=== PATIENT | female | born 1950 | race Caucasian/White ===

== ENCOUNTER 2017-12-28 13:01 | Inpatient (IN) | payer MEDICARE, BC, MEDICAID ==
[2017-12-28 13:28] LABS: ADD MAN DIFF? NO
[2017-12-28 13:31] LABS: BASOPHILS % 0.4 % (0.0-2.0); EOSINOPHILS % 0.1 % (0.0-7.0); HEMATOCRIT 32.2 % (37.0-47.0); HEMOGLOBIN 9.6 g/dl (12.0-16.0); LYMPHOCYTES % 9.3 % (15.0-51.0); MEAN CORPUSCULAR HEMOGLOBIN 27.3 pg (29.0-33.0); MEAN CORPUSCULAR HGB CONC 29.8 g/dl (32.0-37.0); MEAN CORPUSCULAR VOLUME 91.5 fl (82.0-101.0); MEAN PLATELET VOLUME 11.2 fl (7.4-10.4); MONOCYTE # 0.3 10^3/ul (0.3-0.9); MONOCYTES % 3.2 % (0.0-11.0); NEUTROPHIL # 8.9 10^3/ul (1.6-7.5); NEUTROPHILS % 86.4 % (39.0-77.0); PLATELET COUNT 225 10^3/UL (140-415); RED BLOOD COUNT 3.52 10^6/ul (4.20-5.40); RED CELL DISTRIBUTION WIDTH 15.9 % (11.5-14.5)
[2017-12-28 13:31] LABS: WHITE BLOOD COUNT 10.3 10^3/ul (4.8-10.8)
[2017-12-28 13:49] LABS: ALANINE AMINOTRANSFERASE 20 IU/L (13-69); ALBUMIN 3.8 g/dl (3.3-4.9); ALBUMIN/GLOBULIN RATIO 1.05; ALKALINE PHOSPHATASE 82 IU/L (42-121); ASPARTATE AMINO TRANSFERASE 20 IU/L (15-46); BILIRUBIN,INDIRECT 0.4 mg/dl (0-1.1); BILIRUBIN,TOTAL 0.4 mg/dl (0.2-1.3); BLOOD UREA NITROGEN 22 mg/dl (7-20); CALCIUM 9.1 mg/dl (8.4-10.2); CHLORIDE 94 mmol/L (97-110); CREATININE 0.98 mg/dl (0.44-1.00); GLUCOSE 258 mg/dl (70-220); POTASSIUM 4.7 mmol/L (3.5-5.1); SODIUM 143 mmol/L (135-144); TOTAL PROTEIN 7.4 g/dl (6.1-8.1)
[2017-12-28 13:51] LABS: INR 1.19; PROTIME 15.3 Sec (11.9-14.9); PT RATIO 1.2
[2017-12-28 13:52] LABS: PARTIAL THROMBOPLASTIN TIME 29.2 Sec (25.0-35.0)
[2017-12-28 13:56] LABS: AADO2 Arterial 125.9 mmHg (7.0-24.0); Allen Test ACCEPTAB; Arterial Base Excess 15.3 mmol/L (-3.0-3); Arterial Blood Gas Oxygen Sat 93.1 mmHG (95.0-98.0); Arterial COHb 0.3 % (0.0-3.0); Arterial Fraction of Oxyhgb 92.7 % (93.0-99.0); Arterial HCO3 43.5 mmol/L (22.0-26.0); Arterial MetHb 0.1 % (0.0-1.5); Arterial Total Hemglobin 10.8 g/dl (12.0-18.0); Arterial pCO2 76.6 mmhg (35-45); Blood Gas IEPAP 15/5; MODE MASK - BIPAP; Site Right Radial
[2017-12-28 13:58] LABS: ANION GAP 11 (8-16); CARBON DIOXIDE 43 mmol/L (21-31)
[2017-12-28 14:00] LABS: LACTIC ACID 1.4 mmol/L (0.5-2.0)
[2017-12-28 14:00] LABS: B-TYPE NATRIURETIC PEPTIDE 15100 PG/ML (0-125)
[2017-12-28] MEDS: FUROSEMIDE 40 MG INJ IV ×2 (14:05→18:27)
[2017-12-28 14:15] LABS: TROPONIN-I 0.354 ng/ml (0.000-0.120)
[2017-12-28 14:21] LABS: UR AMORPHOUS CRYSTAL FEW /HPF (NONE SEEN); UR BACTERIA FEW /HPF (NONE SEEN); UR CALCIUM OXALATE CRYSTAL FEW /HPF (NONE SEEN); UR MUCUS FEW /HPF (NONE SEEN); UR RBC 2 /HPF (0-5); UR WBC 7 /HPF (0-5)
[2017-12-28 14:28] LABS: ADD UMIC YES; UR ASCORBIC ACID NEGATIVE (NEGATIVE); UR BILIRUBIN (Dip) NEGATIVE (NEGATIVE); UR BLOOD (Dip) 1+ mg/dL (NEGATIVE); UR CLARITY SLIGHTLY CLOUDY (CLEAR); UR COLOR AMBER (YELLOW); UR GLUCOSE (Dip) 1+ mg/dL (NEGATIVE); UR KETONES (Dip) TRACE mg/dL (NEGATIVE); UR LEUKOCYTE ESTERASE (Dip) TRACE Leu/ul (NEGATIVE); UR NITRITE (Dip) NEGATIVE (NEGATIVE); UR SPECIFIC GRAVITY (Dip) 1.023 (1.003-1.030); UR TOTAL PROTEIN (Dip) 3+ mg/dl (NEGATIVE); UR UROBILINOGEN (Dip) NEGATIVE (NEGATIVE)
[2017-12-28] MEDS: ASPIRIN 81 MG TAB PO (14:48)
[2017-12-28 15:19] LABS: LACTIC ACID 1.4 mmol/L (0.5-2.0)
[2017-12-28] MEDS ORDERED: ACETAMINOPHEN 650MG/20.3ML CUP PO (17:30)
[2017-12-28] MEDS ORDERED: BISACODYL 10 MG SUPP PR (17:30)
[2017-12-28] MEDS ORDERED: ALBUTEROL/IPRATROPIUM (NEB) 3 ML AMP INH (17:30)
[2017-12-28 17:38] LABS: ADD MAN DIFF? NO
[2017-12-28 17:40] LABS: WHITE BLOOD COUNT 8.4 10^3/ul (4.8-10.8)
[2017-12-28 17:40] LABS: BASOPHILS % 0.4 % (0.0-2.0); EOSINOPHILS % 0.1 % (0.0-7.0); HEMATOCRIT 32.3 % (37.0-47.0); HEMOGLOBIN 9.7 g/dl (12.0-16.0); LYMPHOCYTES # 1.4 10^3/ul (0.8-2.9); LYMPHOCYTES % 17.1 % (15.0-51.0); MEAN CORPUSCULAR HEMOGLOBIN 27.4 pg (29.0-33.0); MEAN CORPUSCULAR VOLUME 91.2 fl (82.0-101.0); MEAN PLATELET VOLUME 11.2 fl (7.4-10.4); MONOCYTE # 0.3 10^3/ul (0.3-0.9); MONOCYTES % 3.5 % (0.0-11.0); NEUTROPHIL # 6.6 10^3/ul (1.6-7.5); NEUTROPHILS % 78.2 % (39.0-77.0); PLATELET COUNT 220 10^3/UL (140-415); RED BLOOD COUNT 3.54 10^6/ul (4.20-5.40); RED CELL DISTRIBUTION WIDTH 15.9 % (11.5-14.5)
[2017-12-28 17:59] LABS: INR 1.13; PROTIME 14.7 Sec (11.9-14.9); PT RATIO 1.1
[2017-12-28 18:00] LABS: PARTIAL THROMBOPLASTIN TIME 26.6 Sec (25.0-35.0)
[2017-12-28 18:01] LABS: LACTIC ACID 1.5 mmol/L (0.5-2.0)
[2017-12-28 18:07] LABS: HEMOGLOBIN A1C 6.7 % (0-5.9)
[2017-12-28 18:20] LABS: CREATINE KINASE 28 IU/L (23-200)
[2017-12-28] MEDS: HEPARIN 1000 UNITS/ML 10 ML INJ IV (18:25)
[2017-12-28] MEDS: HEPARIN 25000 UNITS/250 ML 250 ML IV (18:26)
[2017-12-28] MEDS: CLOPIDOGREL 75 MG TAB PO (18:26)
[2017-12-28] MEDS: CALCIUM ACETATE 667 MG CAP PO (18:26)
[2017-12-28] MEDS: HYPOGLYCEMIA PROTOCOL when Glucose is <70 mg/dL or symptomatic <90 mg/dL. XX (18:27)
[2017-12-28] MEDS: Discontinue current oral sulfonylureas (glyburide, glipizide, and/or glimepiride) prior to XX (18:27)
[2017-12-28 18:33] LABS: CK INDEX 5.4; CK-MB 1.51 ng/ml (0.0-2.4)
[2017-12-28 18:35] LABS: TROPONIN-I 0.502 ng/ml (0.000-0.120)
[2017-12-28] MEDS: INSULIN ASPART [NOVOLOG] 3 ML PEN SC ×2 (18:55→20:39)
[2017-12-28] MEDS: HALOPERIDOL 5 MG INJ IV (20:14)
[2017-12-28] MEDS: DOCUSATE SODIUM 100 MG CAP PO (20:21)
[2017-12-28] MEDS: ATORVASTATIN 20 MG TAB PO (20:21)
[2017-12-28] MEDS: ASCORBIC ACID 500 MG TAB PO (20:21)
[2017-12-28] MEDS: METOPROLOL 25 MG TAB PO (20:23)
[2017-12-28] MEDS: NYSTATIN 30 GM POWDER BTL TOP (20:25)
[2017-12-28] MEDS: hydrALAzine 20 MG INJ IV (20:31)
[2017-12-28] MEDS: INSULIN GLARGINE [LANtus] 3 ML PEN SC (20:45)
[2017-12-28] MEDS: LORAZEPAM 2 MG INJ IV (22:21)
[2017-12-28] MEDS: LABETALOL HCL 20MG INJ IV (23:03)
[2017-12-29 01:38] LABS: AADO2 Arterial 86.1 mmHg (7.0-24.0); Allen Test ACCEPTAB; Arterial Base Excess 17.3 mmol/L (-3.0-3); Arterial Blood Gas Oxygen Sat 94.1 mmHG (95.0-98.0); Arterial COHb 0.4 % (0.0-3.0); Arterial Fraction of Oxyhgb 93.6 % (93.0-99.0); Arterial HCO3 42.2 mmol/L (22.0-26.0); Arterial MetHb 0.1 % (0.0-1.5); Arterial Total Hemglobin 11.2 g/dl (12.0-18.0); Arterial pCO2 51.7 mmhg (35-45); Blood Gas IEPAP 15/5; Blood Gas PS 10; MODE BIPAP - S/T; Site Right Radial
[2017-12-29 01:56] LABS: PARTIAL THROMBOPLASTIN TIME 73.3 Sec (25.0-35.0)
[2017-12-29] MEDS: ACCU-CHEK XX ×15 (02:00→22:53)
[2017-12-29] MEDS: hydrALAzine 20 MG INJ IV ×2 (02:30→09:17)
[2017-12-29 03:59] LABS: CK INDEX 5.7
[2017-12-29 04:00] LABS: CK-MB 1.36 ng/ml (0.0-2.4); CREATINE KINASE 24 IU/L (23-200)
[2017-12-29] MEDS: LABETALOL HCL 20MG INJ IV (04:46)
[2017-12-29 05:10] LABS: ADD MAN DIFF? NO
[2017-12-29 05:19] LABS: BASOPHILS % 0.1 % (0.0-2.0); EOSINOPHILS % 0.1 % (0.0-7.0); HEMATOCRIT 32.3 % (37.0-47.0); HEMOGLOBIN 9.8 g/dl (12.0-16.0); LYMPHOCYTES # 1.2 10^3/ul (0.8-2.9); LYMPHOCYTES % 8.3 % (15.0-51.0); MEAN CORPUSCULAR HEMOGLOBIN 26.9 pg (29.0-33.0); MEAN CORPUSCULAR HGB CONC 30.3 g/dl (32.0-37.0); MEAN CORPUSCULAR VOLUME 88.7 fl (82.0-101.0); MEAN PLATELET VOLUME 11.7 fl (7.4-10.4); MONOCYTE # 0.5 10^3/ul (0.3-0.9); MONOCYTES % 3.9 % (0.0-11.0); NEUTROPHILS % 85.7 % (39.0-77.0); NUCLEATED RED BLOOD CELLS% 0.1 /100WBC (0.0-0.0); PLATELET COUNT 226 10^3/UL (140-415); RED BLOOD COUNT 3.64 10^6/ul (4.20-5.40); RED CELL DISTRIBUTION WIDTH 16.3 % (11.5-14.5)
[2017-12-29 06:05] LABS: BLOOD UREA NITROGEN 24 mg/dl (7-20); CALCIUM 9.5 mg/dl (8.4-10.2); CHLORIDE 92 mmol/L (97-110); CREATININE 0.87 mg/dl (0.44-1.00); GLUCOSE 246 mg/dl (70-220); MAGNESIUM 1.8 mg/dl (1.7-2.5); POTASSIUM 3.5 mmol/L (3.5-5.1); SODIUM 141 mmol/L (135-144)
[2017-12-29 06:17] LABS: ANION GAP 10 (8-16)
[2017-12-29 06:19] LABS: CARBON DIOXIDE 43 mmol/L (21-31)
[2017-12-29 06:29] LABS: Allen Test ACCEPTAB; Arterial Base Excess 19.1 mmol/L (-3.0-3); Arterial COHb 0.1 % (0.0-3.0); Arterial Fraction of Oxyhgb 96.8 % (93.0-99.0); Arterial HCO3 44.4 mmol/L (22.0-26.0); Arterial MetHb 0.1 % (0.0-1.5); Arterial Total Hemglobin 10.6 g/dl (12.0-18.0); Arterial pCO2 55.5 mmhg (35-45); Blood Gas IEPAP 18/6; Blood Gas PS 12; MODE BIPAP - S/T; Site Right Radial
[2017-12-29] MEDS: FUROSEMIDE 40 MG INJ IV ×2 (06:58→17:55)
[2017-12-29] MEDS: CALCIUM ACETATE 667 MG CAP PO ×3 (07:35→16:49)
[2017-12-29 08:44] LABS: PARTIAL THROMBOPLASTIN TIME 26.7 Sec (25.0-35.0)
[2017-12-29 08:44] LABS: AADO2 Arterial 74.2 mmHg (7.0-24.0); Arterial Blood Gas Oxygen Sat 95.4 mmHG (95.0-98.0); Arterial COHb 0.1 % (0.0-3.0); Arterial Fraction of Oxyhgb 95.2 % (93.0-99.0); Arterial HCO3 42.1 mmol/L (22.0-26.0); Arterial MetHb 0.1 % (0.0-1.5); Arterial Total Hemglobin 10.4 g/dl (12.0-18.0); Arterial pCO2 52.8 mmhg (35-45); Blood Gas IEPAP 18/6; Blood Gas PS 12; MODE MASK - BIPAP; Site Right Brachial
[2017-12-29] MEDS: MULTIVITAMINS THERAPEUTIC TAB PO (09:00)
[2017-12-29] MEDS: ASCORBIC ACID 500 MG TAB PO ×2 (09:00→21:36)
[2017-12-29] MEDS: FERROUS SULFATE (EC) 325 MG TAB PO (09:00)
[2017-12-29] MEDS: AMLODIPINE 10 MG TAB PO (09:00)
[2017-12-29] MEDS: CHOLECALCIFEROL 1,000 UNIT TAB PO (09:00)
[2017-12-29] MEDS: DOCUSATE SODIUM 100 MG CAP PO ×2 (09:00→21:36)
[2017-12-29] MEDS: DULOXETINE 30 MG CAP DR PO (09:00)
[2017-12-29] MEDS ORDERED: VANCOMYCIN IV PER PHARMACY XX (09:00)
[2017-12-29] MEDS: METOPROLOL 25 MG TAB PO (09:00)
[2017-12-29] MEDS: INSULIN ASPART [NOVOLOG] 3 ML PEN SC (09:15)
[2017-12-29] MEDS: HEPARIN 1000 UNITS/ML 10 ML INJ IV (09:15)
[2017-12-29] MEDS ORDERED: DEXTROSE 50% 50 ML SYRINGE IV ×2 (10:00)
[2017-12-29] MEDS: INSULIN HUMAN REGULAR 100 UNIT in SOD CHLORIDE 0.9% 99 ML IV (10:44)
[2017-12-29] MEDS: VANCOMYCIN 2 GM in SOD CHLORIDE 0.9% 500 ML IVPB (11:28)
[2017-12-29] MEDS: HYDROCODONE/APAP (5/325) TAB PO (11:43)
[2017-12-29] MEDS ORDERED: IPRATROPIUM (NEB) 0.5 MG/2.5 ML AMP (11:55)
[2017-12-29] MEDS ORDERED: ALBUTEROL 0.5% (NEB) 2.5 MG/0.5 ML AMP (11:55)
[2017-12-29] MEDS: ASPIRIN 81 MG TAB PO (12:33)
[2017-12-29] MEDS: LISINOPRIL 10 MG TAB PO (12:34)
[2017-12-29] MEDS: NYSTATIN 30 GM POWDER BTL TOP ×2 (16:49→21:40)
[2017-12-29] MEDS: POTASSIUM CHLORIDE 100 ML IVPB ×2 (16:49→19:29)
[2017-12-29] MEDS: RIVAROXABAN 20 MG TABLET PO (17:55)
[2017-12-29] MEDS: ALBUTEROL/IPRATROPIUM (NEB) 3 ML AMP HHN (20:49)
[2017-12-29] MEDS: ATORVASTATIN 20 MG TAB PO (21:36)
[2017-12-29] MEDS: VANCOMYCIN 1.5 GM in SOD CHLORIDE 0.9% 250 ML IVPB (22:54)
[2017-12-30] MEDS: ACCU-CHEK XX ×10 (00:47→09:43)
[2017-12-30] MEDS: CEFTRIAXONE 2 GM/50 ML (PMX) 50 ML IVPB (02:45)
[2017-12-30] MEDS: FUROSEMIDE 40 MG INJ IV ×2 (05:28→18:33)
[2017-12-30 05:35] LABS: ADD MAN DIFF? NO
[2017-12-30 05:40] LABS: BASOPHILS % 0.1 % (0.0-2.0); EOSINOPHILS % 0.3 % (0.0-7.0); HEMATOCRIT 25.5 % (37.0-47.0); HEMOGLOBIN 7.6 g/dl (12.0-16.0); LYMPHOCYTES # 1.5 10^3/ul (0.8-2.9); LYMPHOCYTES % 21.8 % (15.0-51.0); MEAN CORPUSCULAR HEMOGLOBIN 26.8 pg (29.0-33.0); MEAN CORPUSCULAR HGB CONC 29.8 g/dl (32.0-37.0); MEAN CORPUSCULAR VOLUME 89.8 fl (82.0-101.0); MEAN PLATELET VOLUME 12.2 fl (7.4-10.4); MONOCYTE # 0.3 10^3/ul (0.3-0.9); MONOCYTES % 4.8 % (0.0-11.0); NEUTROPHILS % 72.7 % (39.0-77.0); PLATELET COUNT 173 10^3/UL (140-415); RED BLOOD COUNT 2.84 10^6/ul (4.20-5.40); RED CELL DISTRIBUTION WIDTH 16.7 % (11.5-14.5)
[2017-12-30 05:40] LABS: WHITE BLOOD COUNT 6.9 10^3/ul (4.8-10.8)
[2017-12-30 06:07] LABS: AADO2 Arterial 57.1 mmHg (7.0-24.0); Allen Test ACCEPTAB; Arterial Base Excess 18.3 mmol/L (-3.0-3); Arterial Blood Gas Oxygen Sat 97.5 mmHG (95.0-98.0); Arterial COHb 0.2 % (0.0-3.0); Arterial Fraction of Oxyhgb 97.2 % (93.0-99.0); Arterial HCO3 42.9 mmol/L (22.0-26.0); Arterial MetHb 0.1 % (0.0-1.5); Arterial Total Hemglobin 9.5 g/dl (12.0-18.0); Arterial pCO2 51.1 mmhg (35-45); Blood Gas IEPAP 18/6; MODE MASK - BIPAP; Site Right Radial
[2017-12-30 06:41] LABS: BLOOD UREA NITROGEN 27 mg/dl (7-20); CALCIUM 8.3 mg/dl (8.4-10.2); CHLORIDE 97 mmol/L (97-110); CREATININE 0.97 mg/dl (0.44-1.00); GLUCOSE 87 mg/dl (70-220); MAGNESIUM 1.7 mg/dl (1.7-2.5); PHOSPHORUS 3.2 mg/dl (2.5-4.9); POTASSIUM 3.1 mmol/L (3.5-5.1); SODIUM 143 mmol/L (135-144)
[2017-12-30 07:04] LABS: ANION GAP 6 (8-16); CARBON DIOXIDE 43 mmol/L (21-31)
[2017-12-30] MEDS: ASCORBIC ACID 500 MG TAB PO ×2 (09:09→20:14)
[2017-12-30] MEDS: MULTIVITAMINS THERAPEUTIC TAB PO (09:10)
[2017-12-30] MEDS: DULOXETINE 30 MG CAP DR PO (09:10)
[2017-12-30] MEDS: ASPIRIN 81 MG TAB PO (09:10)
[2017-12-30] MEDS: LISINOPRIL 10 MG TAB PO (09:10)
[2017-12-30] MEDS: CHOLECALCIFEROL 1,000 UNIT TAB PO (09:11)
[2017-12-30] MEDS: DOCUSATE SODIUM 100 MG CAP PO ×2 (09:11→20:14)
[2017-12-30] MEDS: CALCIUM ACETATE 667 MG CAP PO ×3 (09:11→18:33)
[2017-12-30] MEDS: NYSTATIN 30 GM POWDER BTL TOP ×2 (09:11→20:49)
[2017-12-30] MEDS: FERROUS SULFATE (EC) 325 MG TAB PO (09:11)
[2017-12-30] MEDS: POTASSIUM CHLORIDE 20 MEQ POWDER FOR ORAL SOLN PO (09:56)
[2017-12-30] MEDS: POTASSIUM CHLORIDE 100 ML IVPB ×2 (09:57→12:24)
[2017-12-30] MEDS: INSULIN GLARGINE [LANtus] 3 ML PEN SC (09:57)
[2017-12-30] MEDS: VANCOMYCIN 1.5 GM in SOD CHLORIDE 0.9% 250 ML IVPB (11:00)
[2017-12-30 11:04] LABS: ADD UMIC YES; UR ASCORBIC ACID NEGATIVE (NEGATIVE); UR BILIRUBIN (Dip) NEGATIVE (NEGATIVE); UR BLOOD (Dip) 3+ mg/dL (NEGATIVE); UR CLARITY SLIGHTLY CLOUDY (CLEAR); UR COLOR YELLOW (YELLOW); UR GLUCOSE (Dip) NEGATIVE (NEGATIVE); UR KETONES (Dip) NEGATIVE (NEGATIVE); UR LEUKOCYTE ESTERASE (Dip) 1+ Leu/ul (NEGATIVE); UR NITRITE (Dip) NEGATIVE (NEGATIVE); UR RBC > 182 /HPF (0-5); UR SPECIFIC GRAVITY (Dip) 1.008 (1.003-1.030); UR TOTAL PROTEIN (Dip) NEGATIVE (NEGATIVE); UR UROBILINOGEN (Dip) NEGATIVE (NEGATIVE); UR WBC 14 /HPF (0-5)
[2017-12-30] MEDS: INSULIN ASPART [NOVOLOG] 3 ML PEN SC ×3 (11:30→20:58)
[2017-12-30] MEDS: MEROPENEM 1 GM/50ML(PMX) 50 ML IVPB ×2 (12:24→22:46)
[2017-12-30] MEDS: MAGNESIUM SULFATE 1 GM/D5W 100 ML IVPB ×3 (14:56→20:36)
[2017-12-30] MEDS: RIVAROXABAN 20 MG TABLET PO (18:33)
[2017-12-30] MEDS: ATORVASTATIN 20 MG TAB PO (20:14)
[2017-12-30 23:03] LABS: VANCOMYCIN,TROUGH 23.3 ug/ml (10.0-20.0)
[2017-12-31] MEDS: FUROSEMIDE 40 MG INJ IV ×2 (05:40→17:29)
[2017-12-31 08:15] LABS: ADD MAN DIFF? NO
[2017-12-31] MEDS: CALCIUM ACETATE 667 MG CAP PO ×3 (08:18→17:28)
[2017-12-31 08:21] LABS: BASOPHILS % 0.2 % (0.0-2.0); EOSINOPHILS # 0.2 10^3/ul (0.0-0.5); EOSINOPHILS % 1.9 % (0.0-7.0); HEMATOCRIT 29.2 % (37.0-47.0); HEMOGLOBIN 8.8 g/dl (12.0-16.0); LYMPHOCYTES # 1.6 10^3/ul (0.8-2.9); LYMPHOCYTES % 18.9 % (15.0-51.0); MEAN CORPUSCULAR HGB CONC 30.1 g/dl (32.0-37.0); MEAN CORPUSCULAR VOLUME 89.6 fl (82.0-101.0); MEAN PLATELET VOLUME 11.5 fl (7.4-10.4); MONOCYTE # 0.5 10^3/ul (0.3-0.9); NEUTROPHIL # 6.1 10^3/ul (1.6-7.5); NEUTROPHILS % 72.5 % (39.0-77.0); PLATELET COUNT 200 10^3/UL (140-415); RED BLOOD COUNT 3.26 10^6/ul (4.20-5.40); RED CELL DISTRIBUTION WIDTH 16.5 % (11.5-14.5)
[2017-12-31 08:21] LABS: WHITE BLOOD COUNT 8.4 10^3/ul (4.8-10.8)
[2017-12-31] MEDS: FERROUS SULFATE (EC) 325 MG TAB PO (08:22)
[2017-12-31] MEDS: DOCUSATE SODIUM 100 MG CAP PO ×2 (08:22→20:40)
[2017-12-31] MEDS: ASCORBIC ACID 500 MG TAB PO ×2 (08:22→20:40)
[2017-12-31] MEDS: DULOXETINE 30 MG CAP DR PO (08:22)
[2017-12-31] MEDS: MULTIVITAMINS THERAPEUTIC TAB PO (08:22)
[2017-12-31] MEDS: CHOLECALCIFEROL 1,000 UNIT TAB PO (08:22)
[2017-12-31] MEDS: MEROPENEM 1 GM/50ML(PMX) 50 ML IVPB ×2 (08:23→20:40)
[2017-12-31] MEDS: LISINOPRIL 10 MG TAB PO (08:23)
[2017-12-31] MEDS: INSULIN ASPART [NOVOLOG] 3 ML PEN SC ×4 (08:25→21:03)
[2017-12-31] MEDS: INSULIN GLARGINE [LANtus] 3 ML PEN SC (08:35)
[2017-12-31] MEDS: NYSTATIN 30 GM POWDER BTL TOP ×2 (08:38→21:00)
[2017-12-31 08:49] LABS: BLOOD UREA NITROGEN 28 mg/dl (7-20); CALCIUM 8.6 mg/dl (8.4-10.2); CHLORIDE 97 mmol/L (97-110); CREATININE 0.89 mg/dl (0.44-1.00); GLUCOSE 148 mg/dl (70-220); MAGNESIUM 2.2 mg/dl (1.7-2.5); PHOSPHORUS 4.1 mg/dl (2.5-4.9); POTASSIUM 3.6 mmol/L (3.5-5.1); SODIUM 144 mmol/L (135-144)
[2017-12-31 09:12] LABS: ANION GAP 7 (8-16); CARBON DIOXIDE 44 mmol/L (21-31)
[2017-12-31] MEDS ORDERED: VANCOMYCIN 1.25 GM in SOD CHLORIDE 0.9% 250 ML IVPB (11:00)
[2017-12-31] MEDS: POTASSIUM CHLORIDE 20 MEQ POWDER FOR ORAL SOLN NGT (12:04)
[2017-12-31] MEDS: VANCOMYCIN 1 GM 250 ML IVPB ×2 (12:05→23:19)
[2017-12-31] MEDS: HYDROCODONE/APAP (5/325) TAB PO (15:29)
[2017-12-31] MEDS: RIVAROXABAN 20 MG TABLET PO (17:28)
[2017-12-31] MEDS: ATORVASTATIN 20 MG TAB PO (20:40)
[2018-01-01] MEDS: ALBUTEROL/IPRATROPIUM (NEB) 3 ML AMP HHN ×3 (00:36→21:22)
[2018-01-01] MEDS: HYDROCODONE/APAP (5/325) TAB PO (00:54)
[2018-01-01] MEDS: FUROSEMIDE 40 MG INJ IV (05:16)
[2018-01-01 07:33] LABS: ADD MAN DIFF? NO
[2018-01-01 07:37] LABS: BASOPHILS % 0.5 % (0.0-2.0); EOSINOPHILS # 0.2 10^3/ul (0.0-0.5); EOSINOPHILS % 3.1 % (0.0-7.0); HEMATOCRIT 30.1 % (37.0-47.0); LYMPHOCYTES # 1.6 10^3/ul (0.8-2.9); LYMPHOCYTES % 26.2 % (15.0-51.0); MEAN CORPUSCULAR HEMOGLOBIN 27.4 pg (29.0-33.0); MEAN CORPUSCULAR HGB CONC 29.9 g/dl (32.0-37.0); MEAN CORPUSCULAR VOLUME 91.8 fl (82.0-101.0); MEAN PLATELET VOLUME 11.7 fl (7.4-10.4); MONOCYTE # 0.4 10^3/ul (0.3-0.9); MONOCYTES % 7.1 % (0.0-11.0); NEUTROPHIL # 3.8 10^3/ul (1.6-7.5); NEUTROPHILS % 62.8 % (39.0-77.0); PLATELET COUNT 203 10^3/UL (140-415); RED BLOOD COUNT 3.28 10^6/ul (4.20-5.40); RED CELL DISTRIBUTION WIDTH 16.3 % (11.5-14.5)
[2018-01-01 07:37] LABS: WHITE BLOOD COUNT 6.1 10^3/ul (4.8-10.8)
[2018-01-01 07:53] LABS: BLOOD UREA NITROGEN 23 mg/dl (7-20); CALCIUM 8.6 mg/dl (8.4-10.2); CHLORIDE 95 mmol/L (97-110); CREATININE 0.88 mg/dl (0.44-1.00); GLUCOSE 158 mg/dl (70-220); POTASSIUM 3.5 mmol/L (3.5-5.1); SODIUM 143 mmol/L (135-144)
[2018-01-01 08:10] LABS: ANION GAP 5 (8-16)
[2018-01-01 08:11] LABS: CARBON DIOXIDE 47 mmol/L (21-31)
[2018-01-01] MEDS: DULOXETINE 30 MG CAP DR PO (08:23)
[2018-01-01] MEDS: FERROUS SULFATE (EC) 325 MG TAB PO (08:23)
[2018-01-01] MEDS: CHOLECALCIFEROL 1,000 UNIT TAB PO (08:24)
[2018-01-01] MEDS: DOCUSATE SODIUM 100 MG CAP PO ×2 (08:24→20:28)
[2018-01-01] MEDS: ASCORBIC ACID 500 MG TAB PO ×2 (08:24→20:29)
[2018-01-01] MEDS: MULTIVITAMINS THERAPEUTIC TAB PO (08:24)
[2018-01-01] MEDS: CALCIUM ACETATE 667 MG CAP PO ×3 (08:24→17:31)
[2018-01-01] MEDS: LISINOPRIL 10 MG TAB PO (08:25)
[2018-01-01] MEDS: MEROPENEM 1 GM/50ML(PMX) 50 ML IVPB ×2 (08:25→20:28)
[2018-01-01] MEDS: INSULIN ASPART [NOVOLOG] 3 ML PEN SC ×4 (08:27→20:31)
[2018-01-01] MEDS: INSULIN GLARGINE [LANtus] 3 ML PEN SC (08:32)
[2018-01-01] MEDS: NYSTATIN 30 GM POWDER BTL TOP ×2 (08:36→20:39)
[2018-01-01] MEDS: LIDOCAINE 1% (MPF) 5 ML VIAL SC (09:30)
[2018-01-01] MEDS: ACETAZOLAMIDE 500 MG INJ IV ×2 (10:29→20:28)
[2018-01-01] MEDS: POTASSIUM CHLORIDE 20 MEQ POWDER FOR ORAL SOLN PO (10:29)
[2018-01-01] MEDS: VANCOMYCIN 1 GM 250 ML IVPB ×2 (10:33→23:00)
[2018-01-01] MEDS: hydrALAzine 20 MG INJ IV (12:22)
[2018-01-01] MEDS: POTASSIUM CHLORIDE (SR) 20 MEQ TAB PO (12:22)
[2018-01-01] MEDS: RIVAROXABAN 20 MG TABLET PO (17:31)
[2018-01-01] MEDS: ATORVASTATIN 20 MG TAB PO (20:29)
[2018-01-01 23:43] LABS: VANCOMYCIN,TROUGH 26.3 ug/ml (10.0-20.0)
[2018-01-02] MEDS: FUROSEMIDE 40 MG TAB PO (05:59)
[2018-01-02 06:45] LABS: ADD MAN DIFF? NO
[2018-01-02 06:51] LABS: WHITE BLOOD COUNT 8.4 10^3/ul (4.8-10.8)
[2018-01-02 06:51] LABS: BASOPHILS % 0.5 % (0.0-2.0); EOSINOPHILS # 0.3 10^3/ul (0.0-0.5); EOSINOPHILS % 3.7 % (0.0-7.0); HEMATOCRIT 30.1 % (37.0-47.0); HEMOGLOBIN 8.8 g/dl (12.0-16.0); LYMPHOCYTES # 2.1 10^3/ul (0.8-2.9); MEAN CORPUSCULAR HEMOGLOBIN 26.8 pg (29.0-33.0); MEAN CORPUSCULAR HGB CONC 29.2 g/dl (32.0-37.0); MEAN CORPUSCULAR VOLUME 91.8 fl (82.0-101.0); MEAN PLATELET VOLUME 11.6 fl (7.4-10.4); MONOCYTE # 0.5 10^3/ul (0.3-0.9); MONOCYTES % 6.2 % (0.0-11.0); NEUTROPHIL # 5.4 10^3/ul (1.6-7.5); NEUTROPHILS % 64.1 % (39.0-77.0); PLATELET COUNT 220 10^3/UL (140-415); RED BLOOD COUNT 3.28 10^6/ul (4.20-5.40); RED CELL DISTRIBUTION WIDTH 16.1 % (11.5-14.5)
[2018-01-02 07:18] LABS: BLOOD UREA NITROGEN 20 mg/dl (7-20); CALCIUM 8.8 mg/dl (8.4-10.2); CHLORIDE 98 mmol/L (97-110); CREATININE 1.06 mg/dl (0.44-1.00); GLUCOSE 142 mg/dl (70-220); PHOSPHORUS 4.2 mg/dl (2.5-4.9); POTASSIUM 3.6 mmol/L (3.5-5.1); SODIUM 143 mmol/L (135-144)
[2018-01-02 07:30] LABS: ANION GAP 5 (8-16)
[2018-01-02 07:31] LABS: CARBON DIOXIDE 44 mmol/L (21-31)
[2018-01-02] MEDS: DOCUSATE SODIUM 100 MG CAP PO ×2 (08:39→20:57)
[2018-01-02] MEDS: ASCORBIC ACID 500 MG TAB PO ×2 (08:39→20:57)
[2018-01-02] MEDS: DULOXETINE 30 MG CAP DR PO (08:39)
[2018-01-02] MEDS: CHOLECALCIFEROL 1,000 UNIT TAB PO (08:40)
[2018-01-02] MEDS: CALCIUM ACETATE 667 MG CAP PO ×3 (08:40→17:16)
[2018-01-02] MEDS: FERROUS SULFATE (EC) 325 MG TAB PO (08:41)
[2018-01-02] MEDS: LISINOPRIL 10 MG TAB PO (08:41)
[2018-01-02] MEDS: NYSTATIN 30 GM POWDER BTL TOP (08:41)
[2018-01-02] MEDS: MULTIVITAMINS THERAPEUTIC TAB PO (08:41)
[2018-01-02] MEDS: INSULIN GLARGINE [LANtus] 3 ML PEN SC (08:47)
[2018-01-02] MEDS: INSULIN ASPART [NOVOLOG] 3 ML PEN SC ×4 (08:48→21:00)
[2018-01-02] MEDS: MEROPENEM 1 GM/50ML(PMX) 50 ML IVPB (09:24)
[2018-01-02] MEDS: IOHEXOL 300MG/ML 30 ML BTL (14:25)
[2018-01-02] MEDS: VANCOMYCIN 1.5 GM in SOD CHLORIDE 0.9% 250 ML IVPB (16:19)
[2018-01-02] MEDS: HYDROCODONE/APAP (5/325) TAB PO (16:30)
[2018-01-02] MEDS: RIVAROXABAN 20 MG TABLET PO (17:16)
[2018-01-02] MEDS: KETOROLAC 30 MG INJ IV (20:51)
[2018-01-02] MEDS: ATORVASTATIN 20 MG TAB PO (20:57)
[2018-01-02] MEDS: NYSTATIN 15 GM CR TOP (21:19)
[2018-01-03] MEDS: MEROPENEM 1 GM/50ML(PMX) 50 ML IVPB ×3 (00:22→20:09)
[2018-01-03] MEDS: NYSTATIN 30 GM POWDER BTL TOP ×3 (00:25→20:13)
[2018-01-03] MEDS: ACCU-CHEK XX (03:13)
[2018-01-03] MEDS: FUROSEMIDE 40 MG TAB PO (06:12)
[2018-01-03 07:05] LABS: ADD MAN DIFF? NO
[2018-01-03 07:08] LABS: WHITE BLOOD COUNT 6.5 10^3/ul (4.8-10.8)
[2018-01-03 07:08] LABS: BASOPHILS % 0.3 % (0.0-2.0); EOSINOPHILS # 0.2 10^3/ul (0.0-0.5); EOSINOPHILS % 3.7 % (0.0-7.0); HEMOGLOBIN 7.6 g/dl (12.0-16.0); LYMPHOCYTES # 1.9 10^3/ul (0.8-2.9); LYMPHOCYTES % 29.7 % (15.0-51.0); MEAN CORPUSCULAR HGB CONC 29.2 g/dl (32.0-37.0); MEAN CORPUSCULAR VOLUME 92.2 fl (82.0-101.0); MONOCYTE # 0.5 10^3/ul (0.3-0.9); MONOCYTES % 7.9 % (0.0-11.0); NEUTROPHIL # 3.8 10^3/ul (1.6-7.5); NEUTROPHILS % 58.2 % (39.0-77.0); PLATELET COUNT 184 10^3/UL (140-415); RED BLOOD COUNT 2.82 10^6/ul (4.20-5.40)
[2018-01-03 08:02] LABS: BLOOD UREA NITROGEN 25 mg/dl (7-20); CALCIUM 8.5 mg/dl (8.4-10.2); CHLORIDE 100 mmol/L (97-110); CREATININE 1.01 mg/dl (0.44-1.00); GLUCOSE 124 mg/dl (70-220); MAGNESIUM 2.2 mg/dl (1.7-2.5); PHOSPHORUS 4.8 mg/dl (2.5-4.9); POTASSIUM 3.7 mmol/L (3.5-5.1); SODIUM 142 mmol/L (135-144)
[2018-01-03 08:22] LABS: ANION GAP 7 (8-16)
[2018-01-03 08:24] LABS: CARBON DIOXIDE 39 mmol/L (21-31)
[2018-01-03] MEDS: INSULIN ASPART [NOVOLOG] 3 ML PEN SC ×4 (08:50→20:13)
[2018-01-03] MEDS: MULTIVITAMINS THERAPEUTIC TAB PO (08:51)
[2018-01-03] MEDS: INSULIN GLARGINE [LANtus] 3 ML PEN SC (08:51)
[2018-01-03] MEDS: DOCUSATE SODIUM 100 MG CAP PO ×2 (08:51→20:10)
[2018-01-03] MEDS: ASCORBIC ACID 500 MG TAB PO ×2 (08:51→20:10)
[2018-01-03] MEDS: DULOXETINE 30 MG CAP DR PO (08:51)
[2018-01-03] MEDS: CALCIUM ACETATE 667 MG CAP PO ×3 (08:51→17:30)
[2018-01-03] MEDS: FERROUS SULFATE (EC) 325 MG TAB PO (08:52)
[2018-01-03] MEDS: CHOLECALCIFEROL 1,000 UNIT TAB PO (08:52)
[2018-01-03] MEDS: LISINOPRIL 10 MG TAB PO (08:52)
[2018-01-03] MEDS: ALBUTEROL/IPRATROPIUM (NEB) 3 ML AMP HHN (10:11)
[2018-01-03] MEDS: ENOXAPARIN 30 MG/0.3 ML SYG SC ×2 (15:11→21:00)
[2018-01-03] MEDS: ENOXAPARIN 100 MG/ML SYG SC ×2 (15:12→21:00)
[2018-01-03] MEDS: VANCOMYCIN 1.5 GM in SOD CHLORIDE 0.9% 250 ML IVPB (15:22)
[2018-01-03] MEDS: ATORVASTATIN 20 MG TAB PO (20:10)
[2018-01-04] MEDS: ENOXAPARIN 100 MG/ML SYG SC ×3 (01:02→22:04)
[2018-01-04] MEDS: ENOXAPARIN 30 MG/0.3 ML SYG SC ×3 (01:03→22:04)
[2018-01-04] MEDS: ACCU-CHEK XX (01:48)
[2018-01-04] MEDS: FUROSEMIDE 40 MG TAB PO (05:24)
[2018-01-04] MEDS: CALCIUM ACETATE 667 MG CAP PO ×3 (07:35→17:53)
[2018-01-04] MEDS: INSULIN GLARGINE [LANtus] 3 ML PEN SC (08:00)
[2018-01-04] MEDS: INSULIN ASPART [NOVOLOG] 3 ML PEN SC ×4 (08:00→22:05)
[2018-01-04] MEDS: MULTIVITAMINS THERAPEUTIC TAB PO ×2 (09:00→09:18)
[2018-01-04] MEDS: FERROUS SULFATE (EC) 325 MG TAB PO (09:18)
[2018-01-04] MEDS: DOCUSATE SODIUM 100 MG CAP PO ×2 (09:18→22:09)
[2018-01-04] MEDS: DULOXETINE 30 MG CAP DR PO (09:18)
[2018-01-04] MEDS: LISINOPRIL 10 MG TAB PO (09:18)
[2018-01-04] MEDS: ASCORBIC ACID 500 MG TAB PO ×2 (09:18→21:59)
[2018-01-04] MEDS: CHOLECALCIFEROL 1,000 UNIT TAB PO (09:18)
[2018-01-04] MEDS: NYSTATIN 30 GM POWDER BTL TOP ×2 (09:19→22:21)
[2018-01-04 14:38] LABS: ADD MAN DIFF? NO
[2018-01-04 14:39] LABS: WHITE BLOOD COUNT 5.3 10^3/ul (4.8-10.8)
[2018-01-04 14:39] LABS: BASOPHILS % 0.6 % (0.0-2.0); EOSINOPHILS # 0.2 10^3/ul (0.0-0.5); EOSINOPHILS % 3.4 % (0.0-7.0); HEMOGLOBIN 7.8 g/dl (12.0-16.0); LYMPHOCYTES # 1.4 10^3/ul (0.8-2.9); LYMPHOCYTES % 27.2 % (15.0-51.0); MEAN CORPUSCULAR HEMOGLOBIN 27.4 pg (29.0-33.0); MEAN CORPUSCULAR VOLUME 91.2 fl (82.0-101.0); MEAN PLATELET VOLUME 11.4 fl (7.4-10.4); MONOCYTE # 0.3 10^3/ul (0.3-0.9); MONOCYTES % 5.7 % (0.0-11.0); NEUTROPHIL # 3.3 10^3/ul (1.6-7.5); NEUTROPHILS % 62.7 % (39.0-77.0); PLATELET COUNT 171 10^3/UL (140-415); RED BLOOD COUNT 2.85 10^6/ul (4.20-5.40); RED CELL DISTRIBUTION WIDTH 15.7 % (11.5-14.5)
[2018-01-04 15:02] LABS: BLOOD UREA NITROGEN 26 mg/dl (7-20); CALCIUM 8.6 mg/dl (8.4-10.2); CHLORIDE 98 mmol/L (97-110); GLUCOSE 200 mg/dl (70-220); PHOSPHORUS 3.9 mg/dl (2.5-4.9); POTASSIUM 4.1 mmol/L (3.5-5.1)
[2018-01-04 15:08] LABS: ANION GAP 7 (8-16)
[2018-01-04 15:18] LABS: CARBON DIOXIDE 39 mmol/L (21-31); SODIUM 140 mmol/L (135-144)
[2018-01-04] MEDS: ZYVOX 600 MG TAB PO (21:59)
[2018-01-04] MEDS: ATORVASTATIN 20 MG TAB PO (21:59)
[2018-01-05] MEDS: ACCU-CHEK XX (02:00)
[2018-01-05] MEDS: FUROSEMIDE 40 MG TAB PO (06:30)
[2018-01-05] MEDS: DULOXETINE 30 MG CAP DR PO (07:56)
[2018-01-05] MEDS: CHOLECALCIFEROL 1,000 UNIT TAB PO (07:56)
[2018-01-05] MEDS: DOCUSATE SODIUM 100 MG CAP PO ×2 (07:56→21:00)
[2018-01-05] MEDS: CALCIUM ACETATE 667 MG CAP PO ×3 (07:56→17:26)
[2018-01-05] MEDS: ASCORBIC ACID 500 MG TAB PO ×2 (07:56→22:01)
[2018-01-05] MEDS: FERROUS SULFATE (EC) 325 MG TAB PO (07:56)
[2018-01-05] MEDS: ZYVOX 600 MG TAB PO ×2 (07:57→22:00)
[2018-01-05] MEDS: MULTIVITAMINS THERAPEUTIC TAB PO (07:57)
[2018-01-05] MEDS: ENOXAPARIN 30 MG/0.3 ML SYG SC ×2 (07:58→22:24)
[2018-01-05] MEDS: INSULIN GLARGINE [LANtus] 3 ML PEN SC (07:58)
[2018-01-05] MEDS: ENOXAPARIN 100 MG/ML SYG SC ×2 (07:59→22:23)
[2018-01-05] MEDS: INSULIN ASPART [NOVOLOG] 3 ML PEN SC ×4 (08:00→22:14)
[2018-01-05] MEDS: LISINOPRIL 10 MG TAB PO (08:01)
[2018-01-05] MEDS: NYSTATIN 30 GM POWDER BTL TOP ×2 (12:21→22:46)
[2018-01-05] MEDS: ATORVASTATIN 20 MG TAB PO (22:01)
[2018-01-06] MEDS: ACCU-CHEK XX (02:00)
[2018-01-06] MEDS: FUROSEMIDE 40 MG TAB PO (05:24)
[2018-01-06] MEDS: CALCIUM ACETATE 667 MG CAP PO ×3 (08:03→17:29)
[2018-01-06] MEDS: INSULIN ASPART [NOVOLOG] 3 ML PEN SC ×4 (08:04→21:27)
[2018-01-06] MEDS: INSULIN GLARGINE [LANtus] 3 ML PEN SC (08:05)
[2018-01-06] MEDS: MULTIVITAMINS THERAPEUTIC TAB PO ×2 (09:00→10:08)
[2018-01-06] MEDS: DOCUSATE SODIUM 100 MG CAP PO ×3 (09:00→23:59)
[2018-01-06] MEDS: DULOXETINE 30 MG CAP DR PO (10:06)
[2018-01-06] MEDS: CHOLECALCIFEROL 1,000 UNIT TAB PO (10:07)
[2018-01-06] MEDS: LISINOPRIL 10 MG TAB PO (10:07)
[2018-01-06] MEDS: ASCORBIC ACID 500 MG TAB PO (10:08)
[2018-01-06] MEDS: FERROUS SULFATE (EC) 325 MG TAB PO (10:08)
[2018-01-06] MEDS: ENOXAPARIN 30 MG/0.3 ML SYG SC ×2 (10:09→23:57)
[2018-01-06] MEDS: ENOXAPARIN 100 MG/ML SYG SC ×2 (10:09→23:58)
[2018-01-06] MEDS: ZYVOX 600 MG TAB PO (10:14)
[2018-01-06] MEDS: NYSTATIN 30 GM POWDER BTL TOP (10:15)
[2018-01-06] MEDS: HYDROCODONE/APAP (5/325) TAB PO (12:55)
[2018-01-07] MEDS: ASCORBIC ACID 500 MG TAB PO ×3 (00:05→20:37)
[2018-01-07] MEDS: NYSTATIN 30 GM POWDER BTL TOP ×3 (00:06→20:35)
[2018-01-07] MEDS: ACCU-CHEK XX (02:00)
[2018-01-07] MEDS: FUROSEMIDE 40 MG TAB PO (05:08)
[2018-01-07 06:00] LABS: ADD MAN DIFF? NO
[2018-01-07 06:08] LABS: BASOPHILS % 0.5 % (0.0-2.0); EOSINOPHILS # 0.2 10^3/ul (0.0-0.5); EOSINOPHILS % 2.6 % (0.0-7.0); HEMATOCRIT 27.6 % (37.0-47.0); HEMOGLOBIN 8.2 g/dl (12.0-16.0); LYMPHOCYTES # 1.8 10^3/ul (0.8-2.9); LYMPHOCYTES % 31.8 % (15.0-51.0); MEAN CORPUSCULAR HEMOGLOBIN 27.6 pg (29.0-33.0); MEAN CORPUSCULAR HGB CONC 29.7 g/dl (32.0-37.0); MEAN CORPUSCULAR VOLUME 92.9 fl (82.0-101.0); MEAN PLATELET VOLUME 11.8 fl (7.4-10.4); MONOCYTE # 0.5 10^3/ul (0.3-0.9); MONOCYTES % 8.4 % (0.0-11.0); NEUTROPHIL # 3.2 10^3/ul (1.6-7.5); NEUTROPHILS % 56.3 % (39.0-77.0); PLATELET COUNT 206 10^3/UL (140-415); RED BLOOD COUNT 2.97 10^6/ul (4.20-5.40); RED CELL DISTRIBUTION WIDTH 15.7 % (11.5-14.5)
[2018-01-07 06:08] LABS: WHITE BLOOD COUNT 5.7 10^3/ul (4.8-10.8)
[2018-01-07] MEDS: HYDROCODONE/APAP (5/325) TAB PO ×3 (08:02→17:27)
[2018-01-07] MEDS: CALCIUM ACETATE 667 MG CAP PO ×3 (08:08→17:22)
[2018-01-07] MEDS: INSULIN ASPART [NOVOLOG] 3 ML PEN SC ×4 (08:10→20:34)
[2018-01-07] MEDS: INSULIN GLARGINE [LANtus] 3 ML PEN SC (08:11)
[2018-01-07] MEDS: DULOXETINE 30 MG CAP DR PO (08:36)
[2018-01-07] MEDS: FERROUS SULFATE (EC) 325 MG TAB PO (08:36)
[2018-01-07] MEDS: MULTIVITAMINS THERAPEUTIC TAB PO (08:36)
[2018-01-07] MEDS: CHOLECALCIFEROL 1,000 UNIT TAB PO (08:36)
[2018-01-07] MEDS: ZYVOX 600 MG TAB PO ×3 (08:36→20:47)
[2018-01-07] MEDS: LISINOPRIL 10 MG TAB PO (08:36)
[2018-01-07] MEDS: ENOXAPARIN 30 MG/0.3 ML SYG SC ×2 (08:37→20:39)
[2018-01-07] MEDS: ENOXAPARIN 100 MG/ML SYG SC ×2 (08:38→20:41)
[2018-01-07] MEDS: DOCUSATE SODIUM 100 MG CAP PO ×2 (09:00→20:37)
[2018-01-07] MEDS ORDERED: CYCLOBENZAPRINE 10 MG TAB PO (14:00)
[2018-01-07] MEDS: BACLOFEN 10 MG TAB PO ×2 (15:11→20:36)
[2018-01-07] MEDS: ATORVASTATIN 20 MG TAB PO ×2 (20:36)
[2018-01-08] MEDS: ACCU-CHEK XX (02:00)
[2018-01-08] MEDS: FUROSEMIDE 40 MG TAB PO (06:20)
[2018-01-08] MEDS: CALCIUM ACETATE 667 MG CAP PO ×3 (07:35→17:31)
[2018-01-08] MEDS: INSULIN GLARGINE [LANtus] 3 ML PEN SC (08:00)
[2018-01-08] MEDS: INSULIN ASPART [NOVOLOG] 3 ML PEN SC ×4 (08:00→21:00)
[2018-01-08] MEDS: CHOLECALCIFEROL 1,000 UNIT TAB PO (09:00)
[2018-01-08] MEDS: BACLOFEN 10 MG TAB PO (09:00)
[2018-01-08] MEDS: DULOXETINE 30 MG CAP DR PO (09:00)
[2018-01-08] MEDS: ENOXAPARIN 30 MG/0.3 ML SYG SC ×2 (09:00→21:23)
[2018-01-08] MEDS: ASCORBIC ACID 500 MG TAB PO ×2 (09:00→21:22)
[2018-01-08] MEDS: NYSTATIN 30 GM POWDER BTL TOP ×2 (09:00→21:26)
[2018-01-08] MEDS: ZYVOX 600 MG TAB PO ×2 (09:00→21:22)
[2018-01-08] MEDS: FERROUS SULFATE (EC) 325 MG TAB PO (09:00)
[2018-01-08] MEDS: DOCUSATE SODIUM 100 MG CAP PO ×2 (09:00→21:21)
[2018-01-08] MEDS: LISINOPRIL 10 MG TAB PO (09:00)
[2018-01-08] MEDS: MULTIVITAMINS THERAPEUTIC TAB PO (09:00)
[2018-01-08] MEDS: ENOXAPARIN 100 MG/ML SYG SC ×2 (09:00→21:24)
[2018-01-08] MEDS ORDERED: BACLOFEN 10 MG TAB PO ×2 (15:00→16:30)
[2018-01-08] MEDS: ATORVASTATIN 20 MG TAB PO (21:22)
[2018-01-09] MEDS: ACCU-CHEK XX (01:39)
[2018-01-09] MEDS: HYDROCODONE/APAP (5/325) TAB PO (03:04)
[2018-01-09] MEDS: FUROSEMIDE 40 MG TAB PO (05:28)
[2018-01-09] MEDS: CALCIUM ACETATE 667 MG CAP PO ×3 (08:12→17:35)
[2018-01-09] MEDS: INSULIN ASPART [NOVOLOG] 3 ML PEN SC ×3 (08:14→17:35)
[2018-01-09] MEDS: INSULIN GLARGINE [LANtus] 3 ML PEN SC (08:15)
[2018-01-09] MEDS: DOCUSATE SODIUM 100 MG CAP PO (08:53)
[2018-01-09] MEDS: MULTIVITAMINS THERAPEUTIC TAB PO (08:54)
[2018-01-09] MEDS: ZYVOX 600 MG TAB PO (08:54)
[2018-01-09] MEDS: FERROUS SULFATE (EC) 325 MG TAB PO (08:54)
[2018-01-09] MEDS: ASCORBIC ACID 500 MG TAB PO (08:54)
[2018-01-09] MEDS: DULOXETINE 30 MG CAP DR PO (08:54)
[2018-01-09] MEDS: CHOLECALCIFEROL 1,000 UNIT TAB PO (08:54)
[2018-01-09] MEDS: LISINOPRIL 10 MG TAB PO (08:55)
[2018-01-09] MEDS: ENOXAPARIN 30 MG/0.3 ML SYG SC (08:56)
[2018-01-09] MEDS: ENOXAPARIN 100 MG/ML SYG SC (08:56)
[2018-01-09] MEDS: NYSTATIN 30 GM POWDER BTL TOP (09:10)
== END 2018-01-09 18:13 | DRG 280 ==
LOC: PP2 01-02 18:53 → MS4 12-30 18:50 → E/R 13:01 → ICU 15:20
PROVIDERS: Internal Medicine
PROC: 02PYX3Z Removal of Infusion Device from Great Vessel, External Approach (ICD-10-PCS; principal; 2017-12-28)
DX: T80.211A Bloodstream infection due to central venous catheter, initial encounter (principal); J96.02 Acute respiratory failure with hypercapnia; I21.4 Non-ST elevation (NSTEMI) myocardial infarction; A41.81 Sepsis due to Enterococcus; A41.02 Sepsis due to Methicillin resistant Staphylococcus aureus; I50.23 Acute on chronic systolic (congestive) heart failure; Z68.42 Body mass index [BMI] 45.0-49.9, adult; N39.0 Urinary tract infection, site not specified; I82.621 Acute embolism and thrombosis of deep veins of right upper extremity; E66.2 Morbid (severe) obesity with alveolar hypoventilation; I42.9 Cardiomyopathy, unspecified; I11.0 Hypertensive heart disease with heart failure; G47.33 Obstructive sleep apnea (adult) (pediatric); E66.01 Morbid (severe) obesity due to excess calories; I48.2 Chronic atrial fibrillation; Z79.01 Long term (current) use of anticoagulants; Z89.432 Acquired absence of left foot; E11.9 Type 2 diabetes mellitus without complications; I25.2 Old myocardial infarction; B96.1 Klebsiella pneumoniae [K. pneumoniae] as the cause of diseases classified elsewhere; D64.9 Anemia, unspecified; D69.6 Thrombocytopenia, unspecified; Z16.12 Extended spectrum beta lactamase (ESBL) resistance
CPT/HCPCS: 36415; 36600; 71045; 76536; 80048; 80053; 80202; 81001; 82550; 82553; 82803; 82962; 83036; 83605; 83735; 83880; 84100; 84443; 84484; 85025; 85610; 85730; 87040; 87070; 87081; 87086; 93005; 93306; 93970; 94640; 94660; 94664; 96374; 97163; 99291-25; J1120